=== PATIENT | female | born 1995 | race Caucasian/White ===

== ENCOUNTER 2018-04-19 02:12 | Emergency (ER) | payer OTHER ==
[2018-04-19] MEDS ORDERED: ONDANSETRON 4 MG/2 ML VIAL IVP ONE ×2 (02:31→02:47)
[2018-04-19 02:40] LABS: PLATELET COUNT 305 10^3/uL (150-400)
[2018-04-19] MEDS ORDERED: KETOROLAC 15 MG/1 ML SDV IVP ONE (02:47)
--- NOTE | 2018-04-19 02:51 | EDPHY ---
H & P Stated Complaint: abd pain Time Seen by Provider: 04/19/18 02:23 HPI/ROS: HPI The patient presents with abdominal pain which she initially noticed at about 10 :00 p.m. Before going to sleep. She woke at 2:00 a.m. With worsening severe abdominal cramping which she feels in her bilateral lower quadrants which has been constant ever since. This is associated with nausea. She x-ray is expecting her menses today or in the next few days. She is being evaluated for endometriosis. She is followed at [facility]. She has had ultrasounds performed which has showed possible endometrioma. She is not taking a control pill currently and her cycles are less regular. She normally has intense menstrual cramping however this is more severe than usual. She is currently not having any vaginal bleeding or discharge.. REVIEW OF SYSTEMS Constitutional: No fever, no chills. Eyes: No discharge. ENT: No sore throat. Cardiovascular: No chest pain, no palpitations. Respiratory: No cough, no shortness of breath. Gastrointestinal: See HPI Genitourinary: No hematuria. Musculoskeletal: No back pain. Skin: No rashes. Neurological: No headache. PMHx: Currently being evaluated for endometriosis Soc Hx: Here with her partner PHYSICAL General Appearance: Alert, no distress Eyes: Pupils equal and round no pallor or injection ENT, Mouth: Mucous membranes moist Respiratory: There are no retractions, lungs are clear to auscultation Cardiovascular: Regular rate and rhythm Gastrointestinal: Abdomen is soft and tender in the lower quadrants without any rebound or guarding Neurological: A&O, moves all extremities Skin: Warm and dry, no rashes Musculoskeletal: Neck is supple non tender Extremities: symmetrical, full range of motion Psychiatric: Patient is oriented X 3, there is no agitation Source: Patient Exam Limitations: No limitations - Personal History LMP (Females 10-55): 22-28 Days Ago Current Tetanus Diphtheria and Acellular Pertussis (TDAP): Yes - Medical/Surgical History Hx Asthma: No Hx Chronic Respiratory Disease: No Hx Diabetes: No Hx Cardiac Disease: No Hx Renal Disease: No Hx Cirrhosis: No Hx Alcoholism: No Hx HIV/AIDS: No Hx Splenectomy or Spleen Trauma: No Other PMH: panic attacks, endometriosis - Social History Smoking Status: Current some day smoker Constitutional: Initial Vital Signs Temperature (C) 36.9 C 04/19/18 02:15 Heart Rate 98 04/19/18 02:15 Respiratory Rate 18 04/19/18 02:15 Blood Pressure 107/49 L 04/19/18 02:15 O2 Sat (%) 96 04/19/18 02:15 O2 Delivery Mode Room Air Allergies/Adverse Reactions: No Known Allergies Allergy (Unverified 03/31/15 17:32) Home Medications: Medication Instructions Recorded NK [No Known Home Meds] 04/19/18 Medical Decision Making Differential Diagnosis: This is a 22-year-old female who presents with lower abdominal cramping for the last several hours getting progressively worse and associated with nausea. She does have a history of dysmenorrhea. On exam, she has tenderness in her bilateral lower quadrants without rebound or guarding. No masses are palpated. I suspect she is having menorrhagia. She is being evaluated for endometriosis currently. Plan for medication for pain and reassess. Patient had basic labs checked which were unremarkable. After receiving Toradol and Zofran she was feeling much better and well enough to go home. She will be discharged, I have instructed her to use ibuprofen at home and [facility]. Differential diagnoses considered include menorrhagia, ovarian cyst with rupture , ovarian torsion, appendicitis. Given patient's abdominal exam is benign upon discharge, I doubt ovarian torsion or appendicitis. - Data Points Laboratory Results: Laboratory Results 04/19/18 02:29 04/19/18 02:29 04/19/18 04/19/18 04/19/18 03:35 02:29 02:29 WBC RBC Hgb Hct MCV MCH MCHC RDW Plt Count MPV Neut % (Auto) Lymph % (Auto) [place] % (Auto) Eos % (Auto) Baso % (Auto) Nucleat RBC Rel Count Absolute Neuts (auto) Absolute Lymphs (auto) Absolute Monos (auto) Absolute Eos (auto) Absolute Basos (auto) Absolute Nucleated RBC Immature Gran % Immature Gran # Sodium 142 mEq/L mEq/L (135-145) Potassium 3.4 mEq/L mEq/L (3.3-5.0) Chloride 105 mEq/L mEq/L (97-110) Carbon Dioxide 25 mEq/l mEq/l (22-31) Anion Gap 12 mEq/L mEq/L (8-16) BUN 14 mg/dL mg/dL (7-23) Creatinine 0.6 mg/dL mg/dL (0.6-1.0) Estimated GFR > 60 Glucose 133 mg/dL H mg/dL (70-100) Calcium 9.4 mg/dL mg/dL (8.5-10.4) Beta HCG, Qual NEGATIVE Urine Color YELLOW Urine Appearance MODERATELY TURBID Urine pH 6.0 (5.0-7.5) Ur Specific [place] 1.015 (1.002-1.030) Urine Protein NEGATIVE (NEGATIVE) Urine Ketones NEGATIVE (NEGATIVE) Urine Blood NEGATIVE (NEGATIVE) Urine Nitrate NEGATIVE (NEGATIVE) Urine Bilirubin NEGATIVE (NEGATIVE) Urine Urobilinogen NEGATIVE EU EU (0.2-1.0) Ur Leukocyte Esterase NEGATIVE (NEGATIVE) Urine Glucose NEGATIVE (NEGATIVE) 04/19/18 02:29 WBC 9.99 10^3/uL H 10^3/uL (3.80-9.50) RBC 4.63 10^6/uL 10^6/uL (4.18-5.33) Hgb 14.7 g/dL g/dL (12.6-16.3) Hct 43.2 % % (38.0-47.0) MCV 93.3 fL fL (81.5-99.8) MCH 31.7 pg pg (27.9-34.1) MCHC 34.0 g/dL g/dL (32.4-36.7) RDW 12.4 % % (11.5-15.2) Plt Count 305 10^3/uL 10^3/uL (150-400) MPV 10.1 fL fL (8.7-11.7) Neut % (Auto) 45.5 % % (39.3-74.2) Lymph % (Auto) 43.0 % % (15.0-45.0) [place] % (Auto) 8.6 % % (4.5-13.0) Eos % (Auto) 2.1 % % (0.6-7.6) Baso % (Auto) 0.6 % % (0.3-1.7) Nucleat RBC Rel Count 0.0 % % (0.0-0.2) Absolute Neuts (auto) 4.54 10^3/uL 10^3/uL (1.70-6.50) Absolute Lymphs (auto) 4.30 10^3/uL H 10^3/uL (1.00-3.00) Absolute Monos (auto) 0.86 10^3/uL H 10^3/uL (0.30-0.80) Absolute Eos (auto) 0.21 10^3/uL 10^3/uL (0.03-0.40) Absolute Basos (auto) 0.06 10^3/uL 10^3/uL (0.02-0.10) Absolute Nucleated RBC 0.00 10^3/uL 10^3/uL (0-0.01) Immature Gran % 0.2 % % (0.0-1.1) Immature Gran # 0.02 10^3/uL 10^3/uL (0.00-0.10) Sodium Potassium Chloride Carbon Dioxide Anion Gap BUN Creatinine Estimated GFR Glucose Calcium Beta HCG, Qual Urine Color Urine Appearance Urine pH Ur Specific [place] Urine Protein Urine Ketones Urine Blood Urine Nitrate Urine Bilirubin Urine Urobilinogen Ur Leukocyte Esterase Urine Glucose Medications Given: Discontinued Medications Sodium Chloride (Ns) 1,000 mls @ 0 mls/hr IV ONCE ONE PRN Reason: Wide Open Stop: 04/19/18 02:54 Last Admin: 04/19/18 02:54 Dose: 1,000 mls Ketorolac Tromethamine (Toradol) 15 mg IVP EDNOW ONE Stop: 04/19/18 02:48 Last Admin: 04/19/18 02:52 Dose: 15 mg Ondansetron HCl (Zofran) 4 mg IVP EDNOW ONE Stop: 04/19/18 02:32 Last Admin: 04/19/18 02:36 Dose: 4 mg Ondansetron HCl (Zofran) 4 mg IVP EDNOW ONE Stop: 04/19/18 02:48 Last Admin: 04/19/18 02:56 Dose: 4 mg Departure - Departure Disposition: Home, Routine, Self-Care Clinical Impression: Menorrhagia Qualifiers: Menorrahagia type: with regular cycle Qualified Code(s): N92.0 - Excessive and frequent menstruation with regular cycle Condition: Good Instructions: Dysmenorrhea (ED), Menorrhagia (ED) Additional Instructions: I recommend you take ibuprofen 400 mg every 6 hr with food. Please follow-up with [facility] in the next few days. You can return to the emergency department if your worse in any way. Referrals: [facility] [Provider Group] - As per Instructions
[2018-04-19] MEDS ORDERED: NS 1,000 ML IV ONE (02:53)
[2018-04-19 03:31] VITALS: BP 115/74
== END 2018-04-19 04:02 | disposition home or self-care (01) ==
DX: N92.0 Excessive and frequent menstruation with regular cycle (principal); F17.200 Nicotine dependence, unspecified, uncomplicated
CPT/HCPCS: 96374; J1885; J2405

== ENCOUNTER 2018-06-17 | Day surgery (SDC) | payer OTHER | END 2018-06-17 15:15 | disposition home or self-care (01) | PROC: 0UB24ZZ Excision of Bilateral Ovaries, Percutaneous Endoscopic Approach (ICD-10-PCS; principal; 2018-06-17) | PROC: 0U524ZZ Destruction of Bilateral Ovaries, Percutaneous Endoscopic Approach (ICD-10-PCS; principal; 2018-06-17) | DX: N80.1 Endometriosis of ovary (principal); N94.10 Unspecified dyspareunia ==